=== PATIENT | female | born 1940 | race African-American/Black ===

== ENCOUNTER 2020-11-13 10:09 | Emergency (ER) | payer MEDICARE ==
--- NOTE | 2020-11-13 12:49 | Emergency Department Report ---
ED Chest Pain HPI - General Chief Complaint: Chest Pain Stated Complaint: CHEST PAIN Time Seen by Provider: 11/13/20 12:33 Source: patient, EMS Mode of arrival: Stretcher Limitations: No Limitations - History of Present Illness Initial Comments: 79-year-old female with history of CAD, high cholesterol, and CKD presents complaining of 4 days of intermittent mid substernal chest pain. Patient states that 4 days ago she was walking down the hallway when she lost her balance and tripped, falling forward. She denies hitting her head or losing consciousness. However, she claims that since then she has had intermittent pain in her mid substernal chest lasting approximately 5 to 10 minutes at a time as well as pain in her abdomen, particularly on the right side. She also reports that she has had associated palpitations with the chest pain but denies any associated shortness of breath, cough, pain radiation, nausea/vomiting, or any other symptoms. Severity scale (0 -10): 0 - Related Data Home Medications Medication Instructions Recorded Confirmed Last Taken Alendronate Sodium 35 mg PO QDAY 11/13/20 11/13/20 Unknown Esomeprazole Magnesium [Nexium 20 mg PO QDAY 11/13/20 11/13/20 Unknown 24Hr] Linaclotide (Nf) [Linzess (Nf)] 1 cap PO DAILY 11/13/20 11/13/20 Unknown Meloxicam [Mobic] 15 mg PO QDAY 11/13/20 11/13/20 Unknown Mirtazapine 7.5 mg PO QDAY 11/13/20 11/13/20 Unknown Primidone [Mysoline] 50 mg PO HS 11/13/20 11/13/20 Unknown Rosuvastatin Calcium 40 mg PO QDAY 11/13/20 11/13/20 Unknown Telmisartan [Micardis] 80 mg PO QDAY 11/13/20 11/13/20 Unknown amLODIPine [Norvasc] 2.5 mg PO DAILY 11/13/20 11/13/20 Unknown Allergies Allergy/AdvReac Type Severity Reaction Status Date / Time No Known Allergies Allergy Unverified 01/15/14 11:58 Heart Score - HEART Score History: Slightly suspicious EKG: Non-specific Age: > 65 Risk factors: > 3 risk factors or hx of atherosclerotic disease Troponin: < normal limit HEART Score: 5 - EKG Read Time Time EKG Completed: 12:09 EKG Read Time: 12:13 ED Review of Systems ROS: Stated complaint: CHEST PAIN Other details as noted in HPI Constitutional: denies: chills, fever Eyes: denies: eye pain, vision change ENT: denies: throat pain, epistaxis Respiratory: denies: cough, shortness of breath Cardiovascular: chest pain, palpitations. denies: syncope Gastrointestinal: abdominal pain. denies: nausea, vomiting Genitourinary: denies: dysuria Musculoskeletal: denies: back pain Neurological: denies: headache, numbness ED Past Medical Hx - Past Medical History Hx Hypertension: Yes Hx Heart Attack/AMI: Yes (NSTEMI 2013, mini CABG 2013) Hx GERD: Yes Hx Renal Disease: Yes (Elevated Creatinine) Hx Arthritis: Yes Hx Asthma: No Hx COPD: No Hx HIV: No Additional medical history: Echo 01/2014 showed EF of 55-60% with mild AR. Hyperlipidemia. Choledocholithiasis - Surgical History Hx Open Heart Surgery: Yes (CABG) Additional Surgical History: Cardiac cath performed here 01/17/2014 revealing a long LAD lesion 8%. Patient was transferred to [facility] for robotic treatment and stenting. ERCP performed 05/30/2015 for common bile duct stone on MRCP and a dilated common bile duct (Dr. Kellogg group) - Social History Smoking Status: Never Smoker - Medications Home Medications: Home Medications Medication Instructions Recorded Confirmed Last Taken Type Alendronate Sodium 35 mg PO QDAY 11/13/20 11/13/20 Unknown History Esomeprazole Magnesium [Nexium 20 mg PO QDAY 11/13/20 11/13/20 Unknown History 24Hr] Linaclotide (Nf) [Linzess (Nf)] 1 cap PO DAILY 11/13/20 11/13/20 Unknown History Meloxicam [Mobic] 15 mg PO QDAY 11/13/20 11/13/20 Unknown History Mirtazapine 7.5 mg PO QDAY 11/13/20 11/13/20 Unknown History Primidone [Mysoline] 50 mg PO HS 11/13/20 11/13/20 Unknown History Rosuvastatin Calcium 40 mg PO QDAY 11/13/20 11/13/20 Unknown History Telmisartan [Micardis] 80 mg PO QDAY 11/13/20 11/13/20 Unknown History amLODIPine [Norvasc] 2.5 mg PO DAILY 11/13/20 11/13/20 Unknown History ED Physical Exam - General Limitations: No Limitations - Other Other exam information: GENERAL: Frail appearing elderly female. No acute distress HEENT: Normocephalic. No obvious contusions, abrasions, lacerations, or other signs of trauma. Moist mucous membranes. EYES: Extraocular movements are intact. NECK: Supple. Trachea is midline. LUNGS: Nonlabored breathing. Equal chest rise bilaterally. Bibasilar ralers HEART/CARDIOVASCULAR: Regular rate and rhythm. No murmurs or rubs. Tenderness noted to the sternum ABDOMEN: Abdomen is soft and nondistended. Normal bowel sounds.There is tenderness noted to the epigastrium, RUQ, and RLQ without guarding or rebound SKIN: Skin is warm and dry NEURO: Patient is awake, alert, and oriented. No focal deficits. Normal motor and sensory exam throughout. Normal speech. Normal gait. MUSCULOSKELETAL: Normal ROM throughout. There is not signifiocant musculoskel etal tenderness or deformity. No significant limitation of range of motion. BACK/SPINE: No midline tenderness or step-offs of the C/T/L spine. ED Course Vital Signs 11/13/20 11/13/20 11/13/20 11:55 12:02 12:16 Temperature Pulse Rate 85 73 60 Respiratory 14 19 22 Rate Blood Pressure 175/79 Blood Pressure 142/80 [Left] O2 Sat by Pulse 99 98 98 Oximetry 11/13/20 11/13/20 11/13/20 12:30 12:46 13:00 Temperature Pulse Rate 74 82 64 Respiratory 17 25 H 23 Rate Blood Pressure 192/85 192/85 188/73 Blood Pressure [Left] O2 Sat by Pulse 99 97 97 Oximetry 11/13/20 11/13/20 11/13/20 13:16 13:30 13:46 Temperature Pulse Rate 60 59 L 57 L Respiratory 20 20 19 Rate Blood Pressure 188/73 161/71 161/71 Blood Pressure [Left] O2 Sat by Pulse 97 96 96 Oximetry 11/13/20 11/13/20 11/13/20 14:00 14:16 14:30 Temperature Pulse Rate 57 L 73 66 Respiratory 18 20 22 Rate Blood Pressure 157/64 157/64 156/68 Blood Pressure [Left] O2 Sat by Pulse 96 96 97 Oximetry 11/13/20 11/13/20 11/13/20 14:46 15:00 15:05 Temperature 98.3 F Pulse Rate 63 80 Respiratory 20 23 Rate Blood Pressure 156/68 153/46 Blood Pressure [Left] O2 Sat by Pulse 96 95 Oximetry MAIK score - Maik Score Age > 65: (1) Yes Aspirin use within the Past 7 Days: (1) Yes 3 or more CAD Risk Factors: (1) Yes 2 or more Angina events in past 24 hrs: (1) Yes Known CAD with more than 50% Stenosis: (1) Yes Elevated Cardiac Markers: (0) No ST Deviation Greater than 0.5mm: (0) No MAIK Score: 5 ED Medical Decision Making - Lab Data Result diagrams: 11/13/20 13:04 11/13/20 13:04 Labs 11/13/20 11/13/20 11/13/20 13:04 13:04 13:04 WBC 9.2 RBC 3.34 L Hgb 10.4 Hct 30.9 MCV 92 MCH 31 MCHC 34 RDW 14.1 Plt Count 189 Add Manual Diff Complete Total Counted 100 Seg Neuts % (Manual) 72.0 H Lymphocytes % (Manual) 16.0 Monocytes % (Manual) 9.0 H Eosinophils % (Manual) 2.0 Basophils % (Manual) 1.0 Nucleated RBC % Not Reportable Seg Neutrophils # Man 6.6 Band Neutrophils # 0.0 Lymphocytes # (Manual) 1.5 Abs React Lymphs (Man) 0.0 Monocytes # (Manual) 0.8 Eosinophils # (Manual) 0.2 Basophils # (Manual) 0.1 Metamyelocytes # 0.0 Myelocytes # 0.0 Promyelocytes # 0.0 Blast Cells # 0.0 WBC Morphology Not Reportable Hypersegmented Neuts Not Reportable Hyposegmented Neuts Not Reportable Hypogranular Neuts Not Reportable Smudge Cells Not Reportable Toxic Granulation Not Reportable Toxic Vacuolation Not Reportable Dohle Bodies Not Reportable Pelger-Huet Anomaly Not Reportable Sheba Rods Not Reportable Platelet Estimate Not Reportable Clumped Platelets Not Reportable Plt Clumps, EDTA Not Reportable Large Platelets Not Reportable Giant Platelets Not Reportable Platelet Satelliting Not Reportable Plt Morphology Comment Not Reportable RBC Morphology Normal Dimorphic RBCs Not Reportable Polychromasia Not Reportable Hypochromasia Not Reportable Poikilocytosis Not Reportable Anisocytosis Not Reportable Microcytosis Not Reportable Macrocytosis Not Reportable Spherocytes Not Reportable Pappenheimer Bodies Not Reportable Sickle Cells Not Reportable Target Cells Not Reportable Tear Drop Cells Not Reportable Ovalocytes Not Reportable Helmet Cells Not Reportable Lopez-Cardiff Bodies Not Reportable [place] Rings Not Reportable [place] Cells Not Reportable Bite Cells Not Reportable Crenated Cell Not Reportable Elliptocytes Not Reportable Acanthocytes (Spur) Not Reportable Rouleaux Not Reportable Hemoglobin C Crystals Not Reportable Schistocytes Not Reportable Malaria parasites Not Reportable Yony Bodies Not Reportable Hem Pathologist Commnt No Sodium 141 Potassium 5.6 H Chloride 108.6 H Carbon Dioxide 22 Anion Gap 16 BUN 30 H Creatinine 1.5 H Estimated GFR 33 BUN/Creatinine Ratio 20 Glucose 86 Calcium 8.9 Magnesium 2.00 Total Bilirubin 0.60 Direct Bilirubin < 0.2 Indirect Bilirubin 0.4 AST 15 ALT 11 Alkaline Phosphatase 101 Troponin T < 0.010 NT-Pro-B Natriuret Pep 2555 H Total Protein 6.1 L Albumin 3.6 L Albumin/Globulin Ratio 1.4 Lipase 48 - EKG Data -: EKG Interpreted by Ct EKG shows normal: sinus rhythm - EKG Data 11/13/20 12:50 Normal sinus rhythm. Normal intervals. No ectopy. No significant ST segment elevation. Inverted T waves noted in leads V1 through V3 - Radiology Data CT CHEST WITHOUT CONTRAST INDICATION / CLINICAL INFORMATION: Chest pain after fall, injury. TECHNIQUE: Axial CT images were obtained through the chest without contrast. Sagittal and coronal reformatted images. All CT scans at this location are performed using CT dose reduction for ALARA by means of automated exposure control. COMPARISON: None available. FINDINGS: HEART: No significant abnormality. THORACIC AORTA: Mild scattered calcific plaques. No abnormal dilatation. MEDIASTINUM and MARGARET: No significant abnormality. LUNGS: No acute air space or interstitial disease. PLEURA: No significant pleural effusion. No pneumothorax. SKELETAL SYSTEM: No thoracic fracture is detected. ADDITIONAL FINDINGS: None. IMPRESSION: No significant abnormality. No evidence for acute injury on noncontrast CT. CT ABDOMEN AND PELVIS WITHOUT CONTRAST HISTORY: Epigastric pain after fall COMPARISON: None. TECHNIQUE: Axial CT images were obtained through the abdomen and pelvis without IV contrast. Sagittal and coronal reformatted images. All CT scans at this location are performed using CT dose reduction for ALARA by means of automated exposure control. FINDINGS: CT ABDOMEN: Liver: No significant abnormality. Biliary: Gallbladder is surgically absent. Spleen: No significant abnormality. Unenlarged. Pancreas: No significant abnormality. Adrenals: No significant abnormality. Kidneys: No significant abnormality. Lymphatics: No lymphadenopathy. Vasculature: Moderate diffuse aortic and iliac calcifications. No aneurysm. Bowel/Peritoneum: No significant abnormality. No free air. No free fluid. Normal appendix. CT PELVIS: : No significant abnormality. Osseous Structures: Mild multilevel thoracolumbar spondylosis. No acute osseous injury is appreciated. Additional Findings: None IMPRESSION: No evidence for acute injury in the abdomen or pelvis. Signer Name: Casey Mackenzie Jr, MD Signed: 11/13/2020 2:48 PM Workstation Name: [id number] - Medical Decision Making 79-year-old female with history of CAD status post CABG brought by EMS from her care home due to 3 days of intermittent mid substernal pressure like chest pain associated with palpitations. The patient does say that the pain started after she had a trip and fall 4 days ago during which she fell forward onto her chest but did not hit her head or lose consciousness. On initial assessment, she is resting comfortably in the bed. She is afebrile and with normal vital signs other than hypertension. Physical examination reveals tenderness over the sternum. Lung auscultation reveals bibasilar rales. Abdominal exam reveals tenderness in the epigastrium right upper quadrant and right lower quadrant without guarding or rebound. Given the patient's age and variety of symptoms and signs on physical exam including the possibility of traumatic origin of her pain we will conduct broad work-up including a full set of labs with troponin as well as CT of the chest/abdomen/pelvis to evaluate for possible acute intra- abdominal process or trauma. Initial troponin is negative. Hemoglobin is 8.8 which is near her baseline. BNP is elevated at 2555. Patient's heart score is 5. CT imaging is pending. At 4 PM, CT of the abdomen and pelvis as well as the chest reveals no acute abnormalities. Given the patient's risk factors and the nature of her complaint she will be admitted to the hospital service for further work-up and management. Critical care attestation.: If time is entered above; I have spent that time in minutes in the direct care of this critically ill patient, excluding procedure time. ED Disposition Clinical Impression: Chest pain, CHF (congestive heart failure) Disposition: OP ADMIT IP TO THIS HOSP Is pt being admited?: Yes Condition: Stable
--- NOTE | 2020-11-13 13:03 | XRay Report ---
CHEST 1 VIEW INDICATION: chest pain. COMPARISON: None FINDINGS: Support devices: None. Heart: Within normal limits. Lungs/Pleura: No acute air space or interstitial disease. Additional findings: None. IMPRESSION: No acute findings. Signer Name: Casey Mackenzie Jr, MD Signed: 11/13/2020 12:59 PM Workstation Name: [id number]
[2020-11-13] MEDS ORDERED: ASPIRIN EC 325 MG TAB PO ONE (13:30)
[2020-11-13 13:52] LABS: Hematocrit 30.9 % (30.3-42.9); Hemoglobin 10.4 gm/dl (10.1-14.3); Mean Corpuscular HGB Conc 34 % (30-34); Mean Corpuscular Volume 92 fl (79-97); Platelet Count 189 K/mm3 (140-440); Red Blood Count 3.34 M/mm3 (3.65-5.03); Red Cell Distribution Width 14.1 % (13.2-15.2)
[2020-11-13 14:05] LABS: Alanine Aminotransferase 11 units/L (7-56); Albumin 3.6 g/dL (3.9-5); BUN/Creatinine Ratio 20; Blood Urea Nitrogen 30 mg/dL (7-17); Calcium 8.9 mg/dL (8.4-10.2); Hemolysis Index 28
[2020-11-13 14:36] LABS: Bilirubin,Direct < 0.2 mg/dL (0-0.2)
--- NOTE | 2020-11-13 15:52 | Cat Scan Report ---
CT CHEST WITHOUT CONTRAST INDICATION / CLINICAL INFORMATION: Chest pain after fall, injury. TECHNIQUE: Axial CT images were obtained through the chest without contrast. Sagittal and coronal reformatted im ages. All CT scans at this location are performed using CT dose reduction for ALARA by means of autom ated exposure control. COMPARISON: None available. FINDINGS: HEART: No significant abnormality. THORACIC AORTA: Mild scattered calcific plaques. No abnormal dilatation. MEDIASTINUM and MARGARET: No significant abnormality. LUNGS: No acute air space or interstitial disease. PLEURA: No significant pleural effusion. No pneumothorax. SKELETAL SYSTEM: No thoracic fracture is detected. ADDITIONAL FINDINGS: None. IMPRESSION: No significant abnormality. No evidence for acute injury on noncontrast CT. CT ABDOMEN AND PELVIS WITHOUT CONTRAST HISTORY: Epigastric pain after fall COMPARISON: None. TECHNIQUE: Axial CT images were obtained through the abdomen and pelvis without IV contrast. Sagittal and coronal reformatted images. All CT scans at this location are performed using CT dose reduction for ALARA by means of automated exposure control. FINDINGS: CT ABDOMEN: Liver: No significant abnormality. Biliary: Gallbladder is surgically absent. Spleen: No significant abnormality. Unenlarged. Pancreas: No significant abnormality. Adrenals: No significant abnormality. Kidneys: No significant abnormality. Lymphatics: No lymphadenopathy. Vasculature: Moderate diffuse aortic and iliac calcifications. No aneurysm. Bowel/Peritoneum: No significant abnormality. No free air. No free fluid. Normal appendix. CT PELVIS: : No significant abnormality. Osseous Structures: Mild multilevel thoracolumbar spondylosis. No acute osseous injury is appreciated . Additional Findings: None IMPRESSION: No evidence for acute injury in the abdomen or pelvis. Signer Name: Casey Mackenzie Jr, MD Signed: 11/13/2020 3:48 PM Workstation Name: [id number]
[2020-11-13 15:58] LABS: RBC Morphology Normal; Total Cells Counted 100
--- NOTE | 2020-11-13 16:01 | History and Physical Report ---
History of Present Illness Chief complaint: I have been having chest pain History of present illness: 79 YO Female with HTN, MA, HLD, CKD, CAD S/P CABG, OA, GERD presents to ED for evaluation. Patient reports "my chest has been hurting". Patient states that she has experienced pain in her chest over the past 4 days. Patient states the pain is intermittent, substernal, nonradiating, not worsened with exertion, not relieved with rest. Patient states that pain lasts from 5 to 10 minutes. Patient knowledges decreased exercise tolerance, shortness of breath, and dyspnea on exertion. EMS was notified and upon arrival the patient was found to be in distress and subsequently transported to [facility] for further care and evaluation of the aforementioned symptoms. The patient was seen and evaluated in the emergency department. All lab and imaging studies reviewed. Patient found to have symptoms consistent with angina as well as diastolic CHF. Patient placed in observation status and admitted to telemetry for further evaluation. Patient denies fever, chills, palpitation, productive cough, skin rash, recent i ll contacts, unilateral leg swelling, calf pain, individual/family history of DVT/PE/bleeding/blood clotting disorders, or known exposure to COVID-19. Prior admission on 02/09/2016 reviewed. All medication listed at time of admission has been reconciled. Advanced care planning conducted in ED. Past History Past Medical History: acute MA, arthritis, CAD, GERD, hypertension, hyperlipidemia Past Surgical History: CABG Social history: . denies: smoking, alcohol abuse, prescription drug abuse Family history: CAD, hypertension Medications and Allergies Allergies Allergy/AdvReac Type Severity Reaction Status Date / Time No Known Allergies Allergy Unverified 01/15/14 11:58 Home Medications Medication Instructions Recorded Confirmed Last Taken Type Alendronate Sodium 35 mg PO QDAY 11/13/20 11/13/20 Unknown History Esomeprazole Magnesium [Nexium 20 mg PO QDAY 11/13/20 11/13/20 Unknown History 24Hr] Linaclotide (Nf) [Linzess (Nf)] 1 cap PO DAILY 11/13/20 11/13/20 Unknown History Meloxicam [Mobic] 15 mg PO QDAY 11/13/20 11/13/20 Unknown History Mirtazapine 7.5 mg PO QDAY 11/13/20 11/13/20 Unknown History Primidone [Mysoline] 50 mg PO HS 11/13/20 11/13/20 Unknown History Rosuvastatin Calcium 40 mg PO QDAY 11/13/20 11/13/20 Unknown History Telmisartan [Micardis] 80 mg PO QDAY 11/13/20 11/13/20 Unknown History amLODIPine [Norvasc] 2.5 mg PO DAILY 11/13/20 11/13/20 Unknown History Review of Systems Constitutional: no weight loss, no weight gain, no fever, no chills Ears, nose, mouth and throat: no ear pain, no decreased hearing, no nose pain, no nasal congestion, no sinus pressure Breasts: no change in shape, no mass Cardiovascular: chest pain, dyspnea on exertion, no rapid/irregular heart beat, no edema, no syncope Respiratory: no cough, no excessive sputum, no hemoptysis Gastrointestinal: no nausea, no diarrhea, no constipation Genitourinary Female: no pelvic pain, no flank pain, no dysuria, no urinary frequency, no urgency Rectal: no pain, no incontinence, no bleeding Musculoskeletal: no neck stiffness, no neck pain, no shooting arm pain, no arm numbness/tingling, no leg numbness/tingling Integumentary: no rash, no pruritis, no redness, no sores, no jaundice, no boils Neurological: no transient paralysis, no paralysis, no weakness, no parathesias, no numbness, no tingling Psychiatric: no anxiety, no change in sleep habits, no sleep disturbances, no insomnia, no change in appetite Endocrine: no cold intolerance, no heat intolerance, no excessive thirst, no polyuria, no excessive sweating, no flushing, no weight change Hematologic/Lymphatic: no easy bruising, no easy bleeding, no lymphadenopathy, no lymphedema Allergic/Immunologic: no urticaria, no allergic rhinitis, no wheezing, no persistent infections Exam - Constitutional Vitals: Temp Pulse Resp BP Pulse Ox 98.3 F 80 23 153/46 95 11/13/20 15:05 11/13/20 15:00 11/13/20 15:00 11/13/20 15:00 11/13/20 15:00 General appearance: Present: mild distress - EENT Eyes: Present: PERRL ENT: hearing intact, clear oral mucosa - Neck Neck: Present: supple, normal ROM - Respiratory Respiratory effort: normal Respiratory: bilateral: CTA - Cardiovascular Heart Sounds: Present: S1 & S2. Absent: rub, click - Extremities Extremities: pulses symmetrical, No edema Peripheral Pulses: within normal limits - Abdominal General gastrointestinal: Present: soft, non-tender, non-distended, normal bowel sounds Female genitourinary: Present: normal - Integumentary Integumentary: Present: clear, warm, dry - Musculoskeletal Musculoskeletal: gait normal, strength equal bilaterally - Psychiatric Psychiatric: appropriate mood/affect, intact judgment & insight - Neurologic Neurologic: CNII-XII intact, moves all extremities HEART Score - HEART Score EKG: Non-specific Age: > 65 Risk factors: > 3 risk factors or hx of atherosclerotic disease Troponin: Troponin T < 0.010 ng/mL (0.00-0.029) 11/13/20 13:04 Results - Labs CBC & Chem 7: 11/13/20 13:04 11/13/20 13:04 Labs: Abnormal lab results 11/13/20 11/13/20 Range/Units 13:04 13:04 RBC 3.34 L (3.65-5.03) M/mm3 Seg Neuts % (Manual) 72.0 H (40.0-70.0) % Monocytes % (Manual) 9.0 H (0.0-7.3) % Potassium 5.6 H (3.6-5.0) mmol/L Chloride 108.6 H (98-107) mmol/L BUN 30 H (7-17) mg/dL Creatinine 1.5 H (0.6-1.2) mg/dL NT-Pro-B Natriuret Pep 2555 H (0-900) pg/mL Total Protein 6.1 L (6.3-8.2) g/dL Albumin 3.6 L (3.9-5) g/dL Assessment and Plan - Patient Problems (1) Angina at rest Status: Acute Plan to address problem: Serial cardiac enzymes, EKG, telemetry, supplemental oxygen, morphine, nitro, aspirin, supportive care. (2) Diastolic CHF Status: Acute Qualifiers: Heart failure chronicity: acute Qualified Code(s): I50.31 - Acute diastolic (congestive) heart failure Plan to address problem: Strict I/O, monitor blood pressure every shift, continue medical management, afterload reduction, blood pressure control, echocardiogram ordered and is pending at time of admission. (3) HTN (hypertension) Status: Acute Qualifiers: Hypertension type: essential hypertension Qualified Code(s): I10 - Essential (primary) hypertension Plan to address problem: Monitor blood pressure every shift, continue medical management (4) HLD (hyperlipidemia) Status: Acute Qualifiers: Hyperlipidemia type: mixed hyperlipidemia Qualified Code(s): E78.2 - Mixed hyperlipidemia Plan to address problem: Statin therapy, low-cholesterol diet, risk factor reduction. (5) GERD (gastroesophageal reflux disease) Status: Acute Qualifiers: Esophagitis presence: without esophagitis Qualified Code(s): K21.9 - Gastro-esophageal reflux disease without esophagitis Plan to address problem: PPI therapy, supportive care (6) DVT prophylaxis Status: Acute Plan to address problem: SCD to bilateral lower extremities while in bed, patient is ambulatory (7) Advance care planning Status: Acute Plan to address problem: Disease education conducted, diagnosis discussed, prognosis discussed, patient is full code, care plan discussed, patient knowledges understanding and agreement with care plan, +30 minutes
[2020-11-13] MEDS ORDERED: NITROGLYCERIN 0.4 MG TAB SUBL SL PRN (16:02)
[2020-11-13] MEDS ORDERED: ACETAMINOPHEN 325 MG TAB PO PRN ×4 (16:02→18:42)
[2020-11-13] MEDS ORDERED: ASPIRIN 81 MG TAB CHEW PO STA (16:02)
[2020-11-13] MEDS ORDERED: ONDANSETRON 4 MG/2 ML INJ IV PRN ×2 (16:02→18:41)
[2020-11-13] MEDS ORDERED: traMADol 50 MG TAB PO PRN ×2 (16:02→18:42)
[2020-11-13 18:28] VITALS: BP 160/70
[2020-11-13] MEDS ORDERED: PRIMIDONE 50 MG TAB PO SCH (22:00)
[2020-11-14] MEDS ORDERED: amLODIPine 5 MG TAB PO SCH (10:00)
[2020-11-14] MEDS ORDERED: LINACLOTIDE 290 MCG PO SCH ×2 (10:00)
[2020-11-14] MEDS ORDERED: ESOMEPRAZOLE MAGNESIUM 20 MG PO SCH (10:00)
[2020-11-14] MEDS ORDERED: MELOXICAM 7.5 MG TAB PO SCH (10:00)
[2020-11-14] MEDS ORDERED: ROSUVASTATIN CALCIUM 40 MG PO SCH (10:00)
[2020-11-14] MEDS ORDERED: ALENDRONATE SODIUM 35 MG PO SCH ×2 (10:00)
[2020-11-14] MEDS ORDERED: NON-FORMULARY EACH (Meloxicam [Mobic] 15 MG Tablet) PO SCH (10:00)
[2020-11-14] MEDS ORDERED: NON-FORMULARY EACH (Mirtazapine [Mirtazapine] 7.5 MG Tablet) PO SCH (10:00)
[2020-11-14] MEDS ORDERED: LOSARTAN 50 MG TAB PO SCH (10:00)
[2020-11-14] MEDS ORDERED: MIRTAZAPINE 15 MG TAB PO SCH (10:00)
[2020-11-14] MEDS ORDERED: TELMISARTAN 80 MG PO SCH (10:00)
[2020-11-14] MEDS ORDERED: PANTOPRAZOLE 20 MG TAB PO SCH (10:00)
--- NOTE | 2020-11-14 10:15 | Electrocardiograph Report ---
[facility] Test Date: 2020-11-13 Test Time: 12:09:04 Pat Name: NAVJOT LEDESMA Department: Room: [place] [address] Gender: F [employer]her: JADON : 1940 Requested By: NELSON MONTERO Order Number: [id number] Reading MD: Pepe Raygoza Measurements Intervals [place] Rate: 63 P: 42 AL: 171 QRS: 2 QRSD: 85 T: 15 QT: 415 QTc: 424 Interpretive Statements Sinus rhythm Left ventricular hypertrophy No previous ECG available for comparison Electronically Signed On 11-14-2020 10:14:51 EDT by Pepe Raygoza
--- NOTE | 2020-11-14 13:30 | Event Note ---
Patient left AMA prior to completion of work-up and conclusion of treatment plan.
== END 2020-11-13 23:59 | disposition admitted as inpatient to this hospital (09) ==
LOC: ED 10:09 → UNDOADMOB 16:02 → 4A 16:02 → UNDODISOB 18:15 → ED 23:59
DX: I11.0 Hypertensive heart disease with heart failure (principal); I50.9 Heart failure, unspecified; R07.89 Other chest pain; R10.13 Epigastric pain; K21.9 Gastro-esophageal reflux disease without esophagitis; M19.91 Primary osteoarthritis, unspecified site; Z98.890 Other specified postprocedural states; Z79.899 Other long term (current) drug therapy
CPT/HCPCS: 36415; 71045; 71250; 74176; 80048; 80076; 83690; 83735; 83880; 84484; 85007; 85025; 93005; G0378